=== PATIENT | female | born 1970 | race Two or more races ===

== ENCOUNTER 2021-01-03 18:23 | Emergency (ER) | payer MEDICAID ==
[~2021-01-03] VITALS: Ht 160 cm; Wt 79.3 kg
[2021-01-03] MEDS ORDERED: CYCL5TAB PO ×2 (19:21→20:34)
[2021-01-03] MEDS ORDERED: DULO60CA45 PO ×2 (19:21→20:34)
[2021-01-03] MEDS ORDERED: DICL25TA10 PO (19:21)
[2021-01-03] MEDS ORDERED: HYDR-3686 PO ×2 (20:32→20:48)
[2021-01-03] MEDS ORDERED: DICL100T85 PO (20:34)
[2021-01-03 20:58] VITALS: BP 132/81
== END 2021-01-03 20:59 | disposition home or self-care (01) ==
LOC: ER 18:25
DX: F41.9 Anxiety disorder, unspecified (principal); M79.7 Fibromyalgia; Z76.0 Encounter for issue of repeat prescription; Z88.0 Allergy status to penicillin; Z79.899 Other long term (current) drug therapy
CPT/HCPCS: 99281

== ENCOUNTER 2021-03-07 19:30 | Emergency (ER) | payer MEDICAID ==
[~2021-03-07] VITALS: Ht 154.9 cm; Wt 88.0 kg
[~2021-03-07 19:30] MED LIST: CYCL5TAB PO; DICL100T85 PO; DICL25TA10 PO; DULO60CA45 PO; HYDR-3686 PO
[2021-03-07 20:38] VITALS: BP 108/60
== END 2021-03-08 07:13 | disposition left against medical advice (07) ==
LOC: ER 19:31
DX: M25.511 Pain in right shoulder (principal); Z53.21 Procedure and treatment not carried out due to patient leaving prior to being seen by health care provider